=== PATIENT | male | born 1960 | race Caucasian/White ===

== ENCOUNTER 2018-09-23 13:47 | Emergency (ER) | payer MEDICARE, OTHER ==
[~2018-09-23] VITALS: Ht 177.8 cm; Wt 136.1 kg
--- NOTE | 2018-09-23 14:15 | NUR ---
BIB PRIVATE TRANSPORTATION FROM HOME FOR MEDICAL CLEARANCE GOING TO [facility]. PT AAOX3, VSS. DENIES CP, SOB, DIZZINESS, N/V/D AT THIS TIME. CALM & COOPERATIVE NO ACUTE DISTRESS NOTED. PT SEEN & EVAL'D BY DR. HIDALGO & WILL CONT TO MONITOR.
--- NOTE | 2018-09-23 14:20 | NUR ---
URINE COLLECTED AND SENT TO LAB.
[2018-09-23 14:31] LABS: APPEARANCE,URINE Clear (CLEAR); BILIRUBIN,URINE Negative (NEGATIVE); BLOOD, URINE Trace-lysed Ery/uL (NEGATIVE); COLOR,URINE Yellow (YELLOW); KETONES,URINE Negative (NEGATIVE); LEUKOCYTE ESTERASE ,URINE Negative (NEGATIVE); NITRITE, URINE Negative (NEGATIVE); PH,URINE 5.5 (5.0-8.0); PROTEIN,URINE Negative (NEGATIVE); UGLUCOSE Negative (NEGATIVE)
[2018-09-23 14:33] LABS: BACTERIA,URINE Few /HPF (None Seen); RBC,URINE 0-2 /HPF (0-2); SQUAMOUS EPITHELIAL CELL,UR Few /HPF (None Seen); WBC,URINE 0-2 /HPF (0-3)
[2018-09-23 14:44] LABS: BASOPHILS # (AUTO) 0.1 /CMM (0.0-0.2); EOSINOPHILS % (AUTO) 2.3 % (0.0-6.0); HEMATOCRIT 40 % (39-51); LYMPHOCYTES # (AUTO) 1.8 /CMM (0.8-4.8); LYMPHOCYTES % (AUTO) 18.3 % (20.0-44.0); MEAN CORPUSCULAR HGB CONC 33 g/dl (31.0-36.0); MEAN CORPUSCULAR VOLUME 87 fL (80-96); MONOCYTES # (AUTO) 0.8 /CMM (0.1-1.30); MONOCYTES % (AUTO) 7.9 % (2.0-12.0); NEUTROPHILS # (AUTO) 6.8 /CMM (1.8-8.9); NEUTROPHILS % (AUTO) 70.5 % (43.0-81.0); PLATELET COUNT (AUTO) 185 /CMM (150-450); RED BLOOD CELL COUNT(AUTO) 4.55 MIL/uL (4.5-6.0); WHITE BLOOD COUNT (AUTO) 9.7 K/uL (4.3-11.0)
[2018-09-23 14:51] LABS: CALCIUM, SERUM 9.2 mg/dL (8.5-10.1); CREATININE 1.3 mg/dL (0.6-1.3); POTASSIUM 4.2 mmol/L (3.5-5.1)
[2018-09-23 14:57] LABS: ALBUMIN 3.9 g/dL (3.4-5.0); BILIRUBIN,DIRECT 0.2 mg/dL (0.0-0.2); BILIRUBIN,TOTAL 0.9 mg/dL (0.2-1.0)
--- NOTE | 2018-09-23 16:00 | NUR ---
CALLED RANDA FROM [employer] NO ANSWER BUT LEFT MESSAGE ON VOICEMAIL.
--- NOTE | 2018-09-23 16:30 | NUR ---
CALLED RANDA FROM [employer] NO ANSWER BUT LEFT MESSAGE ON VOICEMAIL.
--- NOTE | 2018-09-23 17:16 | NUR ---
CALLED CHAS FROM [employer] NO ANSWER BUT LEFT MESSAGE ON VOICEMAIL.
--- NOTE | 2018-09-23 17:30 | NUR ---
Patient is resting comfortably in bed with eyes closed. Easily aroused. VSS
--- NOTE | 2018-09-23 18:20 | NUR ---
called Oksana (admitting from [facility]) [phone], per Oksana she will call back in 5 mins.
--- NOTE | 2018-09-23 18:46 | NUR ---
[facility]) LEFT MESSAGE ON VOICEMAIL [phone]
--- NOTE | 2018-09-23 20:04 | NUR ---
PER MADYSON RN FROM [facility]([phone]) PT ACCEPTED BY DR ALCARAZ, KATHIA FOR REPORT [phone] ASK FOR RN SUP FOR ROOM ASSIGNMENT
--- NOTE | 2018-09-23 20:14 | NUR ---
GLENNA TREADWELL TO [facility] BUSY ETA [id number] TRIP #[id number]
[2018-09-23 20:18] VITALS: BP 108/58
--- NOTE | 2018-09-23 20:27 | NUR ---
REPORT GIVEN TO KATHIA SALINAS AT [facility] FOR CONT OF CARE. AWAITING AMBULANCE FOR BLS TRANSPORT.
--- NOTE | 2018-09-23 22:09 | NUR ---
UPDATED ETA 10 MIN
--- NOTE | 2018-09-23 22:33 | NUR ---
PT EN ROUTE TO [facility] VIA BLS, AMBULNZ.
== END 2018-09-23 22:36 ==
LOC: ER 13:53
DX: I11.0 Hypertensive heart disease with heart failure (principal); I50.9 Heart failure, unspecified; R41.82 Altered mental status, unspecified; G47.30 Sleep apnea, unspecified; M54.5 Low back pain; G89.29 Other chronic pain; F32.9 Major depressive disorder, single episode, unspecified; E66.01 Morbid (severe) obesity due to excess calories; I44.7 Left bundle-branch block, unspecified; Z60.2 Problems related to living alone
CPT/HCPCS: 36415; 71045-TC; 80048-TC; 80076-TC; 81000-TC; 85025-TC

== ENCOUNTER 2020-08-15 08:20 | Inpatient (IN) | payer MEDICARE, OTHER ==
[~2020-08-15] VITALS: Ht 177.8 cm; Wt 115.7 kg
--- NOTE | 2020-08-15 08:49 | NUR ---
BIBRA39 SCHVN FOR CHEST PAIN X YESTERDAY. RESOLVE S/P NITRO X1. PT AAOX4, VSS. RR EVEN & UNLABORED. DENIES CP, SOB, DIZZINESS, N/V, ARM/JAW PAIN AT THIS TIME. PLACED ON CAR INSPECTION AND REPAIR MANAGER, SR. PT SEEN & EVAL'D BY DR. SALAZAR. WILL CONT TO MONITOR.
[2020-08-15 09:31] LABS: BASOPHILS # (AUTO) 0.1 /CMM (0.0-0.2); BASOPHILS % (AUTO) 0.9 % (0.0-2.0); EOSINOPHILS % (AUTO) 2.5 % (0.0-6.0); HEMATOCRIT 45 % (39-51); LYMPHOCYTES # (AUTO) 1.4 /CMM (0.8-4.8); LYMPHOCYTES % (AUTO) 18.7 % (20.0-44.0); MEAN CORPUSCULAR HGB CONC 33 g/dl (31.0-36.0); MEAN CORPUSCULAR VOLUME 89 fL (80-96); MONOCYTES # (AUTO) 0.6 /CMM (0.1-1.30); MONOCYTES % (AUTO) 8.2 % (2.0-12.0); NEUTROPHILS # (AUTO) 5.1 /CMM (1.8-8.9); NEUTROPHILS % (AUTO) 69.7 % (43.0-81.0); PLATELET COUNT (AUTO) 123 /CMM (150-450); RED BLOOD CELL COUNT(AUTO) 5.04 MIL/uL (4.5-6.0); WHITE BLOOD COUNT (AUTO) 7.3 K/uL (4.3-11.0)
[2020-08-15 09:46] LABS: CALCIUM, SERUM 9.1 mg/dL (8.5-10.1); CARBON DIOXIDE 28 mmol/L (21-32); CHLORIDE 104 mmol/L (98-107); CREATININE 0.9 mg/dL (0.6-1.3); GLUCOSE 87 mg/dL (74-106); POTASSIUM 4.3 mmol/L (3.5-5.1); SODIUM SERUM 139 mmol/L (136-145); UREA NITROGEN, BLOOD 19 mg/dL (7-18)
[2020-08-15] MEDS ORDERED: BUME1TAB8 PO (10:04)
[2020-08-15] MEDS ORDERED: BUPR-54 PO (10:04)
[2020-08-15] MEDS ORDERED: ATOR40TA PO (10:04)
[2020-08-15] MEDS ORDERED: ASPI-1169 PO (10:04)
[2020-08-15] MEDS ORDERED: TAMS-12 PO (10:04)
[2020-08-15] MEDS ORDERED: ASPIRIN 325 MG TABLET ONE (10:18)
[2020-08-15] MEDS ORDERED: ASPIRIN 325 MG TABLET PO ONE (10:30)
--- NOTE | 2020-08-15 11:27 | NUR ---
REPORT GIVEN TO KATHIA SOLIZ FOR [facility]
--- NOTE | 2020-08-15 11:50 | NUR ---
PATIENT RECEIVED FROM ED . NO C/O CHEST PAIN BREATHING EVEN AND UNLABORED. TELE BOX APPLIED UPON ARRIVAL.
[2020-08-15 12:00] VITALS: BP 104/63
[2020-08-15] MEDS ORDERED: MAG HYDROX/AL HYDROX/SIMETH 30 ML UDC PO PRN (12:00)
[2020-08-15] MEDS ORDERED: ONDANSETRON HCL/PF 4 MG/2 ML VIAL IVP PRN (12:00)
[2020-08-15] MEDS ORDERED: DOCUSATE SODIUM 100 MG CAPSULE PO PRN (12:00)
[2020-08-15] MEDS ORDERED: NITROGLYCERIN 0.4 MG/TAB BOTTLE SL PRN (12:00)
--- NOTE | 2020-08-15 12:00 | NUR ---
Patient to have CT angio done and needed 18 gauze needle per laborer tan house. Unable to insert IV with mutliple attempts. Called MATTHEW copeland and received orders for MID LINE. MID LINE nurse made aware.
--- NOTE | 2020-08-15 12:40 | NUR ---
MID LINE inserted and patient taken to feed mill lab technician for CT.
[2020-08-15] MEDS ORDERED: IV NS 0.9% 250 ML IV ONE (12:55)
[2020-08-15] MEDS ORDERED: IOHEXOL-350 100 ML VIAL IV ONE (12:55)
[2020-08-15] MEDS ORDERED: METOPROLOL TARTRATE INJ 5 MG/5 ML AMPUL ONE (12:56)
[2020-08-15] MEDS ORDERED: METOPROLOL TARTRATE INJ 5 MG/5 ML AMPUL IVP PRN (13:00)
[2020-08-15] MEDS ORDERED: NITROGLYCERIN 0.4 MG/TAB BOTTLE SL ONE (13:00)
[2020-08-15] MEDS ORDERED: NITROGLYCERIN 4.9 GM SPRAY ONE (13:05)
--- NOTE | 2020-08-15 13:09 | NUR ---
RN NOTES POST CTA: Patient able to tolerate procedure, no adverse reaction noted. Send back to patient room.
[2020-08-15 16:00] VITALS: BP 93/60
[2020-08-15] MEDS ORDERED: OLANZAPINE 10 MG VIAL IM ONE (19:00)
--- NOTE | 2020-08-15 19:30 | NUR ---
RN OPENING NOTES: RECEIVED PT A/OX3-4 IN BED RESTLESS AND AGITATED. PER AM SHIFT RN PT JUST RECEIVED ZYPREXA 5MG VIA IM. PATIENT IS ON ROOM AIR ; TOLERATING WELL WITH 02 SAT OF 95% AT THE TIME OF RECEIVED. NO TELE MONITOR AT THE TIME OF RECEIVED; PT REFUSED. PER RECORD PT IS ON CARDIAC DIET. NOTED IV SITE ON R UA MIDLINE#18;PULLED OUT BY PATIENT; WILL FACILITATE NEW IV ACCESS WITHIN THE SHIFT. PT ON 4 POINT HARD RESTRAINTS; ASSESSED AND MONITORED PER PROTOCOL. SAFETY MEASURES HAVE BEEN PROVIDED AND IMPLEMENTED. PATIENT BED ALARM IS ON. HEAD OF BED ELEVATED. BED IS LOCKED, IN LOWEST POSITION AND SIDE RAILS UP. CALL LIGHT WITHIN REACH OF THE PATIENT. APPLICABLE ISOLATION PRECAUTIONS IN PLACE. WILL CONTINUE TO MONITOR AND REASSESS FOR ANY CHANGES AND WILL CARRY OUT ANY ONGOING AND ACTIVE MD ORDER.
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
--- NOTE | 2020-08-15 20:50 | NUR ---
RN NOTES FACILITATED INSERTION OF IV LINE/ACCESS @ L HANDG#22; SALINE LOCK, SECURED, INTACT AND FLUSHING WELL. GENERAL MERCHANDISE MANAGER MADE AWARE.
[2020-08-15] MEDS: MORPHINE SULFATE INJ 2 MG/ML DISP.SYRIN IV PRN (20:59)
--- NOTE | 2020-08-15 21:00 | NUR ---
RN NOTES PATIENT RELEASED FROM RESTRAINTS PER PT'S REQUEST AND PER ASSESSMENT, PT NOTED TO BE CALM AND NON AGGRESSIVE AT THIS TIME. SECURITY FACILITATED ACTUAL RELEASE, PRIMARY RN @BEDSIDE DURING THE RELEASE. COMFORT MEASURES PROVIDED TO PT. SCHEDULE SUPERVISOR AND MISTY CARRIZALES MADE AWARE. WILL CONTINUE TO ASSESS AND MONITOR FOR ANY BEHAVIORAL CHANGES OF THE PATIENT THROUGHOUT THE SHIFT.
[2020-08-15] MEDS ORDERED: SIMVASTATIN 20 MG TABLET PO SCH (22:00)
--- NOTE | 2020-08-15 23:00 | NUR ---
RN NOTES NO CHANGE IN PATIENT CONDITION AT THIS TIME PATIENT VITALS STABLE, NO SIGNS OF ACUTE RESPIRATORY DISTRESS. EGG PASTEURIZER MADE AWARE. WILL CONTINUE TO MONITOR AND REASSESS FOR ANY CHANGES THROUGHOUT THE SHIFT. Addendum: 08/16/20 at 0252 by JANET SKINNER RN NO SIGNS OF BEHAVIORAL AGGRESSION AT THIS TIME; WILL CONTINUE TO ASSESS, MONITOR AND PROVIDE SAFE ENVIRONMENT TO PT TO PREVENT EPISODE OF AGGRESSION AND AGITATION.
[2020-08-16] VITALS: BP 101/57
[2020-08-16 04:00] VITALS: BP 107/55
--- NOTE | 2020-08-16 04:00 | NUR ---
RN NOTES PATIENT REMAINS IN NO ACUTE RESPIRATORY DISTRESS AT THIS TIME, NO CHANGES TO CONDITION/STATUS, V/S WNL. AM PATIENT CARE DONE. NO SIGNS OF AGGRESSION AND BEHAVIORAL CHANGES AT THIS TIME. RUGBY UNION FOOTBALLER WELL AWARE. WILL CONTINUE TO MONITOR AND REASSESS FOR ANY CHANGES THROUGHOUT THE SHIFT
--- NOTE | 2020-08-16 06:52 | NUR ---
RN CLOSING NOTE: PATIENT REMAINS IN ROOM IN NO SIGNS OF RESPIRATORY DISTRESS, PATIENT STILL ON ROOM AIR;TOLERATING WELL SATURATING @ >95% SP02. NO AGGRESSIVE AND BEHAVIORAL ISSUES NOTED THROUGHOUT THE SHIFT AFTER BEING RELEASED FROM RESTRAINTS. SAFETY MEASURES IMPLEMENTED, BED IN LOWEST POSITION, LOCKED, SIDE RAILS UP, CALL LIGHT WITHIN REACH. ALL NEEDS AND ORDERS ADDRESSED DURING THE SHIFT. IV ACCESS MAINTAINED INTACT, SECURED AND FLUSHING WELL. ALL DUE MEDS GIVEN ORDERED & SCHEDULED ; PATIENT TOLERATED WELL. PATIENT KEPT CLEAN AND COMFORTABLE WITHIN THE SHIFT. PATIENT ENDORSED TO INCOMING SHIFT RN WITH STABLE VITAL SIGN AND FOR CONTINUITY OF CARE.
[2020-08-16 08:00] VITALS: BP 113/67
--- NOTE | 2020-08-16 08:10 | NUR ---
RN note: Pt received alert awake oriented X 4. On RA, No breathing distress noted. Denies pain & discomfort. Refused for tele monitoring, MD aware. Safety measures observed. Encourage pt to call for assistance. Call light within reach. Continue to monitor.
[2020-08-16] MEDS ORDERED: ASPIRIN 81 MG TAB.CHEW PO SCH (09:00)
[2020-08-16] MEDS: MORPHINE SULFATE INJ 2 MG/ML DISP.SYRIN IV PRN (10:42)
[2020-08-16] MEDS: ACETAMINOPHEN 325 MG TABLET PO PRN ×2 (11:50→17:00)
[2020-08-16] MEDS ORDERED: OLANZAPINE 2.5 MG TABLET PO PRN (14:30)
[2020-08-16] MEDS ORDERED: OLANZAPINE 10 MG VIAL IM PRN (14:30)
[2020-08-16 16:00] VITALS: BP 119/69
[2020-08-16] MEDS ORDERED: OLAN5TAB3 PO (18:54)
--- NOTE | 2020-08-16 19:08 | NUR ---
RN note: No significant changes noted during shift. Denies SI/HI during shift. No episode of agitation noted. Medically cleared to discharge, waiting for psychiatrist approval to discharge. Safety measures observed. Endorsed to PM shift for continuity of care.
--- NOTE | 2020-08-16 20:15 | NUR ---
RN NOTE PATIENT DISCHARGE WITH STABLE CONDITION AND VITAL SIGNS WNL, ALERT ORIENTED X3-4, NO ACUTE DISTRESS NOTED, BREATHING UNLABORED. DISCHARGE INSTRUCTIONS GIVEN INCLUDING HEALTH TEACHINGS AND DISCHARGE PACKET WHICH INCLUDES MED RECORDS AND PRESCRIPTIONS. ALL BELONGINGS ACCOUNTED FOR. IV ACCESS REMOVED, NO REDNESS, NO BLEEDING, NO SWELLING NOTED. PT WENT OUT AMBULATORY. DESIGNATED BROKER WELL AWARE.
== END 2020-08-16 20:15 | DRG 392 ==
LOC: ER 08:24 → TELE-TD 10:43 → TELE1 11:42
PROVIDERS: ADMIT Registered Nurse; ATTEND Registered Nurse
PROC: 05HY33Z Insertion of Infusion Device into Upper Vein, Percutaneous Approach (ICD-10-PCS; principal; 2020-08-15)
PROC: 05HY33Z Insertion of Infusion Device into Upper Vein, Percutaneous Approach (ICD-10-PCS; 2020-08-15)
DX: K21.9 Gastro-esophageal reflux disease without esophagitis (principal); I50.32 Chronic diastolic (congestive) heart failure; I11.0 Hypertensive heart disease with heart failure; F32.9 Major depressive disorder, single episode, unspecified; G47.30 Sleep apnea, unspecified; Z98.84 Bariatric surgery status; G89.29 Other chronic pain; Z88.8 Allergy status to other drugs, medicaments and biological substances; Z79.82 Long term (current) use of aspirin; Z79.899 Other long term (current) drug therapy; I44.7 Left bundle-branch block, unspecified; E78.5 Hyperlipidemia, unspecified; Z68.36 Body mass index [BMI] 36.0-36.9, adult; E66.01 Morbid (severe) obesity due to excess calories; Z59.0 Homelessness; F15.90 Other stimulant use, unspecified, uncomplicated
CPT/HCPCS: 36410; 36415; 71045-TC; 75574; 80048-TC; 83880; 84484-TC; 85025-TC; 87081-TC; 93307-TC; G0378; J2270; J3490; J7050; Q9967; U0003

== ENCOUNTER 2020-08-17 00:23 | Emergency (ER) | payer MEDICARE, MEDICAID ==
[~2020-08-17] VITALS: Ht 177.8 cm; Wt 115.7 kg
[2020-08-17 00:23] VITALS: BP 111/74
[~2020-08-17 00:23] MED LIST: ASPI-1169 PO; ATOR40TA PO; BUME1TAB8 PO; BUPR-54 PO; OLAN5TAB3 PO; TAMS-12 PO
--- NOTE | 2020-08-17 00:52 | NUR ---
pt requesting ibuprofen. law aware. verbal order rec'd
[2020-08-17] MEDS ORDERED: IBUPROFEN 600 MG TABLET ONE (00:54)
[2020-08-17] MEDS ORDERED: IBUPROFEN 600 MG TABLET PO ONE (01:00)
== END 2020-08-17 02:00 | disposition home or self-care (01) ==
LOC: ER 00:25
DX: M79.605 Pain in left leg (principal); I11.0 Hypertensive heart disease with heart failure; I50.9 Heart failure, unspecified; G89.29 Other chronic pain; Z60.2 Problems related to living alone; Z79.899 Other long term (current) drug therapy; Z79.82 Long term (current) use of aspirin